=== PATIENT | male | born 1955 | race Caucasian/White ===

== ENCOUNTER 2023-02-25 06:16 | Day surgery (SDC) | payer OTHER ==
[2023-02-10 14:18] LABS: Potassium 3.6 mmol/L (3.5-5.1)
[2023-02-10 14:24] LABS: Absolute Lymphocytes (CBC) 1.5 K/uL (0.7-4.9); Hematocrit 32.8 % (39.6-49.0); MCV 91.3 fL (80-100); MPV 8.7 fL (7.6-11.3); RBC Red Blood Cell Count 3.59 M/uL (4.33-5.43)
[2023-02-10 14:25] LABS: Protime INR 1.08
--- NOTE | 2023-02-10 15:13 | RAD REPORT ---
[facility]AM [facility]02[facility]10/2023 1:21 pm CLINICAL HISTORY: Pre op pending ESWL COMPARISON: Chest Pa And Lat (2 Views) dated 08/23/2021; CHEST PA AND LAT 2 VIEW dated 12/11/2012; [facility] PA AND LAT 2 VIEW dated 11/21/2011 TECHNIQUE: PA and lateral views of the chest. FINDINGS: The lungs show no focal consolidation. Perihilar streaky opacities and prominent interstit ium, could reflect mild congestion. No pneumothorax or effusion. The cardiomediastinal contours are u nremarkable. IMPRESSION: Mild central venous congestion. No focal consolidation.
--- NOTE | 2023-02-11 12:41 | EKG ---
Test Date: 2023-02-10 Test Time: 13:06:10 Neon Installer: ISMAEL MEASUREMENT RESULTS: Intervals: Rate: 62 AZ: 246 QRSD: 154 QT: 486 QTc: 493 [place]: P: 67 AZ: 246 QRS: 77 T: 63 INTERPRETIVE STATEMENTS: Sinus rhythm with 1st degree AV block Right bundle branch block Abnormal ECG No previous ECG available for comparison Electronically Signed On 02-11-23 12:39:39 CDT by Marquis Chirinos
[2023-02-25] MEDS ORDERED: NA CHLORIDE 0.9% 1,000 ML ONE (06:36)
[2023-02-25] MEDS ORDERED: propofoL 200 MG/20 ML VIAL IV ONE (07:10)
[2023-02-25] MEDS ORDERED: MIDAZOLAM HCL 2 MG/2 ML INJ ONE (07:11)
[2023-02-25] MEDS ORDERED: LIDOCAINE 2% MPF 5 ML VIAL ONE (07:11)
[2023-02-25] MEDS ORDERED: ONDANSETRON 4 MG/2 ML VIAL ONE (07:11)
[2023-02-25] MEDS ORDERED: FENTANYL CITR 100 MCG/2 ML ONE (07:11)
[2023-02-25] MEDS ORDERED: CEFAZOLIN SODIUM 2 GM/VIAL ONE (07:37)
[2023-02-25] MEDS ORDERED: KETOROLAC 30 MG/ML INJ ONE (08:38)
[2023-02-25] MEDS ORDERED: CODEINE 30MG/APAP 300MG TAB PO PRN (08:41)
[2023-02-25] MEDS ORDERED: HEPARIN 500 UNIT/5 ML SYR IV ONE (09:01)
[2023-02-25 09:15] VITALS: O2SAT 97
--- NOTE | 2023-02-25 09:33 | OP ---
Surgeon: MOISES JAIN Preoperative Diagnosis: Right nephrolithiasis with 10 mm and 5 mm stones in the upper pole, and 5 mm lower pole calculus. Postoperative Diagnosis: Right nephrolithiasis with 10 mm and 5 mm stones in the upper pole, and 5 m m lower pole calculus. Principal Procedure: Right extracorporeal shockwave lithotripsy. Indication For Procedure: Mr. Gill is a 67-year-old gentleman with large volume bilateral nephrol ithiasis, who had microscopic hematuria and was evaluated revealing the presence of the radiopaque st ones. He was counseled on the recommendation for management given the size of the stones to prevent further complications and damage down the line and was scheduled for staged ESWL with the right side going first. Procedure In Detail: The patient was consented in the preoperative holding area before being transfe rred to operative suite where general anesthesia was induced. He was given Ancef 2 g IV antimicrobia l prophylaxis and pneumo boots were provided for DVT prophylaxis. He was placed supine on the proced ure table and a water bath was placed beneath his right flank. The shockwave lithotripsy treatment w as focused on the stone after appropriate fluoroscopic targeting had been obtained, and there were si gnificant stone burden noted within the upper pole. The stones appeared larger than that initially s een on CT with a 10 mm stone next to what appeared to be closer to a 7 or 8 mm stone. The additional smaller 5 mm calculus was indeed noted in the lower pole. As a result, we began targeting the upper pole calculi using shockwave lithotripsy and slowly ramping up the power up to a maximum of 7 on the shockwave Lithotripter after giving a 2-minute pause within the first 500 shocks. The upper pole ca lculi did seem to fragment relatively easily, and we restarted the cloud of dust to ensure sufficient fragmentation of any and all radiopaque stone densities. After approximately 2450 shocks had been g iven, we then refocused the targeting it on the 5 mm lower pole calculus and shocked it for the remai hank 550 approximately shocks. In the end, adequate treatment and fragmentation of the stones had be en achieved, and the patient was awakened from general anesthesia. He was then transferred to a [facility] and then transferred to the recovery room in good condition. Complications: None. Discharge Disposition: He should obtain a renal ultrasound prior to followup in about 2 months' time where we will confirm absence of any perinephric or subcapsular hematoma on the right side. I would also like him to get a serum BMP prior to that followup appointment as well to ensure normal kidney function before we proceed with the left side ESWL in about 3 months from now. LESLEY/BRUCE Voice ID: [id number] Report ID: [id number]
[2023-02-25 10:06] VITALS: BP 140/74; TEMP 97
== END 2023-02-25 10:20 | disposition home or self-care (01) ==
LOC: OR 06:16
PROVIDERS: ATTEND Urology
DX: N20.0 Calculus of kidney (principal); N40.1 Benign prostatic hyperplasia with lower urinary tract symptoms; I48.92 Unspecified atrial flutter; G47.33 Obstructive sleep apnea (adult) (pediatric); I10 Essential (primary) hypertension; R73.03 Prediabetes; Z99.81 Dependence on supplemental oxygen; Z87.891 Personal history of nicotine dependence; Z79.82 Long term (current) use of aspirin; Z79.899 Other long term (current) drug therapy
CPT/HCPCS: 36415; 50590; 71046; 80048; 82947; 85025; 85610; 87086; 87088; 93005; J1642; J2001; J2250; J2405; J2704; J3010; J7030

== ENCOUNTER 2023-06-10 10:13 | Day surgery (SDC) | payer OTHER ==
[2023-06-04 15:35] LABS: Absolute Lymphocytes (CBC) 1.6 K/uL (0.7-4.9); Hematocrit 37.8 % (39.6-49.0); Lymphocytes % 15.6 % (15.3-44.8); MCV 89.4 fL (80-100); MPV 8.2 fL (7.6-11.3); RBC Red Blood Cell Count 4.22 M/uL (4.33-5.43)
[2023-06-04 15:47] LABS: Protime INR 1.02
[2023-06-04 15:57] LABS: Potassium 3.7 mEq/L (3.5-5.1)
[2023-06-10] MEDS ORDERED: NA CHLORIDE 0.9% 1,000 ML ONE (10:46)
[2023-06-10] MEDS ORDERED: LIDOCAINE 2% MPF 5 ML VIAL ONE (14:02)
[2023-06-10] MEDS ORDERED: propofoL 200 MG/20 ML VIAL IV ONE (14:02)
[2023-06-10] MEDS ORDERED: dexAMETHasone 4 MG/ML VIAL ONE (14:02)
[2023-06-10] MEDS ORDERED: ONDANSETRON 4 MG/2 ML VIAL ONE (14:02)
[2023-06-10] MEDS ORDERED: FENTANYL CITR 100 MCG/2 ML ONE ×2 (14:05→14:33)
[2023-06-10] MEDS ORDERED: MIDAZOLAM HCL 2 MG/2 ML INJ ONE (14:37)
[2023-06-10] MEDS ORDERED: CODEINE 30MG/APAP 300MG TAB PO PRN (15:25)
[2023-06-10 15:52] VITALS: O2SAT 96
[2023-06-10 17:08] VITALS: BP 154/85
[2023-06-10 17:10] VITALS: TEMP 97
--- NOTE | 2023-06-10 18:35 | OP ---
Surgeon: MOISES JAIN Preoperative Diagnoses: 1.Left nephrolithiasis, 9 mm lower and 8 mm upper pole. 2.Status post right ESWL. Postoperative Diagnoses: 1.Left nephrolithiasis, 9 mm lower and 8 mm upper pole. 2.Status post right ESWL. Principal Procedure: Left extracorporeal shock wave lithotripsy/ESWL. Indication For Procedure: Mr. Gill is a 67-year-old gentleman, who presents for the second stage of management of bilateral nephrolithiasis. He underwent right ESWL on 02/25/2023 for a 10 mm calcul us with associated 5 and 4 mm calculi in the right kidney. He had additional 9 mm and 8 mm calculi w ithin the left kidney within the mid pole and the upper pole respectively, and after an ultrasound ve rified absence of perinephric hematoma, he was then scheduled for followup left of the staged ESWL. Procedure In Detail: The patient was consented in the preoperative holding area before being transfe rred to operative suite where general anesthesia was induced. He was given Ancef 2 g IV antimicrobia l prophylaxis, and placed supine on the procedure table. A water bath was placed beneath his left fl ank, and targeting was performed fluoroscopically in the anterior-posterior and dorsal ventral dimens ions. Once the stone was adequately targeted, shock wave lithotripsy was initiated on the larger of the stone collections in the mid pole of the left kidney. Shock wave was initiated at a power settin g of 4 and increased over the course of 500 shocks to a maximum power of 7. A 2-minute pause was per formed at around 200 shocks, and then shock wave lithotripsy continued at 1 hertz until there was estephania dence of fragmentation of the stone, which occurred at around 500 shocks. We then increased to 125 h ertz and continued shock wave lithotripsy up to 1000 shocks, at which point repeat imaging suggested there was a residual more hard calcific density within the medial portion of the stone burden; so thi s was targeted again at a rate of 1 hertz until 1500 shocks had been delivered. Since that density p ersisted, an additional 500 shocks were delivered until 2000 shocks were reached. We then turned our attention to the upper pole where there were 2 separate calcifications that would superimpose on eac h other in the dorsal ventral dimensions, and we targeted this for about 500 shocks, but that stone d id quickly fragmented into dust. As a result, the remaining 500 shocks, we retargeted the lower pole density that was persistent and completed a total of 3000 shocks delivered to the entirety of the le ft stone burden. In the end, the patient was awakened from general anesthesia, transferred [facility], and then transferred to the recovery room in good condition. Complications: None. Discharge Disposition: He should follow up in the Urology Clinic in about 1-2 months' time and have a pre-clinic KUB performed prior to that followup. He should strain his urine for any stone dust in the meantime over the next couple of weeks and bring that into the clinic for analysis. Subsequent m etabolic stone profile assessment will be required as long as no significant stone burden is visualiz ed. LESLEY/BRUCE Voice ID: [id number] Report ID: [id number]
== END 2023-06-10 16:40 | disposition home or self-care (01) ==
LOC: OR 10:13
PROVIDERS: ATTEND Urology
PROC: 0TF4XZZ Fragmentation in Left Kidney Pelvis, External Approach (ICD-10-PCS; principal; 2023-06-10 12:30)
DX: N20.0 Calculus of kidney (principal); G47.33 Obstructive sleep apnea (adult) (pediatric); E11.9 Type 2 diabetes mellitus without complications; I48.92 Unspecified atrial flutter
CPT/HCPCS: 50590; 87088; 85025; 87086; 80048; 36415; 85610; 82947; 85730; J2704; J1100; J2001; J2250; J3010 ×2; J2405; J7030